=== PATIENT | male | born 1980 | race Caucasian/White ===

== ENCOUNTER 2016-08-19 21:24 | Emergency (ER) | payer SELFPAY ==
[2016-08-19] MEDS ORDERED: PROAIR HFA8.5 GM INH ×2 (22:09→23:47)
[2016-08-19] MEDS ORDERED: MUCINEX600 M1 PO (22:09)
[2016-08-19] MEDS ORDERED: NYQUIL (22:10)
[2016-08-19] MEDS ORDERED: TYLENOL EXTRA500 M1 PO (22:11)
[2016-08-19] MEDS ORDERED: PREDNISONE20 M1 PO (23:47)
[2016-08-19] MEDS ORDERED: AEROCHAMBER WI1 EACH MC (23:47)
== END 2016-08-20 00:06 ==
LOC: EDMED 21:24
DX: J45.901 Unspecified asthma with (acute) exacerbation (principal)
CPT/HCPCS: J7512